=== PATIENT | female | born 1945 | race Asian ===

== ENCOUNTER → 2023-09-07 06:56 | Outpatient (REF) | payer OTHER, SELFPAY | LOC: DHCBC/DCA 06:56 | PROVIDERS: ATTENDING PHYSICIAN Internal Medicine Cardiovascular Disease; FAMILY PHYSICIAN Internal Medicine | DX: I25.10 Atherosclerotic heart disease of native coronary artery without angina pectoris (principal) | CPT/HCPCS: 78452; 93017; A9500; J2785 ==